=== PATIENT | female | born 1990 | race African-American/Black ===

== ENCOUNTER → 2018-01-20 20:09 | Observation (INO) ==
[2018-01-20 17:45] LABS: Basophils % 0.2 %; Eosinophils % 0.3 %; Hematocrit 37.6 % (35.3-44.9); Hemoglobin 12.7 g/dL (11.5-15.4); Immature Granulocytes % 0.4 % (0-4); Lymphocytes # 1.2 K/mcL (0.6-4.6); Lymphocytes % 10.7 %; Mean Corpuscular HGB Conc 33.8 g/dL (31.6-35.5); Mean Corpuscular Hemoglobin 30.1 pg (28.0-33.3); Mean Corpuscular Volume 89.1 fL (83.0-100.0); Mean Platelet Volume 10.5 fL (9.4-12.4); Monocytes # 0.7 K/mcL (0.0-1.3); Monocytes % 6.1 %; Neutrophils # 9.2 K/mcL (1.6-8.9); Platelet Count 254 K/mcL (140-400); Red Blood Count 4.22 M/mcL (3.82-4.97); Red Cell Distribution Width 13.2 % (11.5-14.5); Segmented Neutrophils % 82.3 %
[2018-01-20 17:48] LABS: Bilirubin,Urine Negative (Negative); Blood,Urine Negative (Negative); Clarity,Urine Cloudy (Clear); Color,Urine Yellow (Yellow); Glucose,Urine (UA) Normal (Normal); Ketones,Urine 80 mg/dL (Negative); Leukocyte Esterase,Urine Negative (Negative); Nitrite,Urine Negative (Negative); PH,Urine 6.5 pH Units (5.0-8.0); Protein,Urine 30 mg/dL (Neg-Trace); Specific Gravity,Urine 1.028 (1.010-1.025); Urobilinogen,Urine Normal (Normal)
[2018-01-20 17:49] LABS: Bacteria,Urine None Seen per hpf (None-Few); Hyaline Casts,Urine None Seen per lpf (None-Few); Squamous Epithelial Cell,Urine Many per lpf (None-Few)
[2018-01-20 18:18] LABS: Amphetamine Screen,Urine Negative ng/mL (Cutoff=1000); Barbiturate Screen,Urine Negative ng/mL (Cutoff=200); Benzodiazepines Screen,Urine Negative ng/mL (Cutoff=200); Cannabinoid Screen,Urine Negative ng/mL (Cutoff = 50); Cocaine Screen,Urine Negative ng/mL (Cutoff= 300); Opiate Screen,Urine Negative ng/mL (Cutoff=300); Phencyclidine Screen,Urine Negative ng/mL (Cutoff=25)
--- NOTE | 2018-01-20 19:24 | OB/GYN Progress Note ---
Date of Encounter: 01/20/18 Time of Encounter: 19:20 - Assessment and Plan (1) 25 weeks gestation of Current Visit: Yes Status: Acute Patient admitted for observation PIH labs pending (2) Nausea and vomiting during Current Visit: Yes Status: Acute electrolytes pending IV Zofran (3) GDM, class A1 Current Visit: Yes Status: Acute Patient reports last accucheck was 101 Subjective - Subjective Principal diagnosis: Nausea and vomiting Interval history: Patient is a 27 y/o @ 25 weeks gestation presents to labor and delivery with complaints of nausea and vomiting in . Patient also reports that her BP was elevated at home. Patient denies any headache, dizziness, blurred vision, contractions, LOF or VB. Patient reports +FM. is complicated by GDM that is diet controlled. Patient has history of PIH with previous . Antepartum ROS: movement normal, no loss of fluid, no vaginal bleeding, no contractions Objective - Vital Signs Vital Signs: Intake and Output 01/20/18 01/20/18 01/20/18 07:59 15:59 23:59 Other: Weight 95.4 kg Patient Weight 01/20/18 23:59 Weight 95.4 kg - Exam FHR: auscultation normal, category 1 FHR comments: 130 bpm moderate variability appropriate for gestational age. No contractions noted. Auscultation: bilateral: normal Abdomen: Present: normal appearance, soft, gravid Uterus: Present: normal - Labs Labs: Abnormal lab results WBC 11.2 K/mcL (4.3-11.1) H 01/20/18 17:23 Neutrophils # 9.2 K/mcL (1.6-8.9) H 01/20/18 17:23 Urine Clarity Cloudy (Clear) A 01/20/18 17:13 Ur Specific [place] 1.028 (1.010-1.025) H 01/20/18 17:13 Urine Protein 30 mg/dL (Neg-Trace) H 01/20/18 17:13 Urine Ketones 80 mg/dL (Negative) H 01/20/18 17:13 Urine Microscopic RBC 3-5 per hpf (0-3) H 01/20/18 17:13 Urine Microscopic WBC 5-15 per hpf (0-3) H 01/20/18 17:13 Ur Squamous Epith Cells Many per lpf (None-Few) H 01/20/18 17:13
--- NOTE | 2018-01-20 19:59 | Event Note ---
Date of Encounter: 01/20/18 Time of Encounter: 19:57 Patient asking to go home. Labs were delayed in Lab and hemolyzed patient does not want to have labs redrawn. BPs wnl. Patient reports she has had this nausea and vomiting her all along in this .
[~2018-01-20 20:09] MED LIST: Ondansetron 4 MG/2 ML VIAL IVP ONE
== END | disposition home or self-care (01) ==
LOC: 1NENULAB
PROVIDERS: ADMIT Advanced Practice Midwife; ATTEND Advanced Practice Midwife

== ENCOUNTER → 2018-04-14 00:40 | Observation (INO) ==
--- NOTE | 2018-04-13 17:10 | OB/GYN Progress Note ---
Date of Encounter: 04/13/18 Time of Encounter: 17:05 - Assessment and Plan (1) 37 weeks gestation of Current Visit: Yes Status: Acute Urine in office indicative of UTI Clinda IV CBC with Diff UDS LR fluids NST reactive Based upon CBC results, will keep for 24 hours of ABX or discharge home with oral ABX Plan of care per consult with Dr Triana (2) GDM (gestational diabetes mellitus) Current Visit: Yes Status: Acute Qualifiers: Gestational diabetes mellitus control: oral hypoglycemic-controlled Trimester: third trimester Qualified Code(s): O24.415 - Gestational diabetes mellitus in , controlled by oral hypoglycemic drugs (3) Urinary tract infection during in third trimester, antepartum Current Visit: Yes Status: Acute (4) NST (non-stress test) reactive Current Visit: Yes Status: Acute (5) Previous section complicating Current Visit: Yes Status: Acute Subjective - Subjective Principal diagnosis: Uterine contractions and abdominal pain Interval history: Ms Veloz is a at 37 weeks and 0 days that presents to triage from the office for suspected UTI and painful contractions. Her urinalysis from the office was indicative of UTI. She has had increased cramping and contractions since 32 weeks without cervical change, but states that they have increased today. She does have GDM and is currently on Metformin with good control. She has had a previous for failure to progress at 36 weeks secondary to SROM. She denies eating anything since this morning. Her ultrasound today states an SAMMY of 22 with an EFW of 7# 14 oz in the 93%. She denies headache, vision changes, epigastric pain, and leaking of fluid/vaginal bleeding. She states positive movement. Antepartum ROS: new complaints, movement normal, contractions, no loss of fluid, no vaginal bleeding Objective - Vital Signs Vital Signs: Intake and Output 04/13/18 04/13/18 04/13/18 07:59 15:59 23:59 Other: Weight 100.9 kg Patient Weight 04/13/18 23:59 Weight 100.9 kg - Exam FHR: auscultation normal, category 1 FHR comments: Baseline 140 category I tracing. Contractions every 2-5 minutes, palpate moderate Auscultation: bilateral: normal Abdomen: Present: normal appearance, soft, gravid, other (no CVA tenderness noted) Uterus: Present: normal. Absent: firm, tenderness Cervical dilation: FT Cervix effacement: Thick station: high Comments: Exam per Dr Sy in office.
[2018-04-13 17:13] LABS: Basophils % 0.2 %; Eosinophils % 0.2 %; Hematocrit 34.6 % (35.3-44.9); Hemoglobin 11.1 g/dL (11.5-15.4); Immature Granulocytes % 0.5 % (0-4); Lymphocytes % 15.4 %; Mean Corpuscular HGB Conc 32.1 g/dL (31.6-35.5); Mean Corpuscular Hemoglobin 27.2 pg (28.0-33.3); Mean Corpuscular Volume 84.8 fL (83.0-100.0); Mean Platelet Volume 11.3 fL (9.4-12.4); Monocytes # 1.2 K/mcL (0.0-1.3); Monocytes % 9.1 %; Neutrophils # 9.7 K/mcL (1.6-8.9); Nucleated Red Blood Cells 0.2 /100 WBC (0); Platelet Count 197 K/mcL (140-400); Red Blood Count 4.08 M/mcL (3.82-4.97); Red Cell Distribution Width 13.9 % (11.5-14.5); Segmented Neutrophils % 74.6 %
[2018-04-13 17:25] LABS: Amphetamine Screen,Urine Negative ng/mL (Cutoff=1000); Barbiturate Screen,Urine Negative ng/mL (Cutoff=200); Benzodiazepines Screen,Urine Negative ng/mL (Cutoff=200); Cannabinoid Screen,Urine Negative ng/mL (Cutoff = 50); Cocaine Screen,Urine Negative ng/mL (Cutoff= 300); Opiate Screen,Urine Negative ng/mL (Cutoff=300); Phencyclidine Screen,Urine Negative ng/mL (Cutoff=25)
--- NOTE | 2018-04-13 17:48 | OB Labor Progress Note ---
Date of Encounter: 04/13/18 Time of Encounter: 17:45 Labor Progress Note - Subjective Subjective: Patient breathing through contractions. Is requesting pain medication. - Vital Signs Vital Signs: VSS - Cervix Cervix: 4/80/-2 - Heart Tones Heart Tones: 130 baseline category I - [place]: Contractions every 2-2.5 minutes - Plan Plan: Continue routine labor management GBS negative Continue Pitocin Patient may have nubain/epidural upon request Anticipate vaginal delivery POC per consult with Dr Triana.
[~2018-04-14 00:40] MED LIST changes: +*HR* Promethazine 25 MG/ML VIAL IVP PRN; +Acetaminophen 325 MG TABLET PO PRN; +Clindamycin 600 MG/50 ML 600 MG/50 ML IV.SOLN IVPB SCH; +Famotidine 20 MG/2 ML VIAL IVP ONE; -Ondansetron 4 MG/2 ML VIAL IVP ONE; +Ondansetron 4 MG/2 ML VIAL IVP PRN; +Ringers Solution, Lactated 1,000 ML IVC SCH
== END | disposition home or self-care (01) ==
LOC: 1NENULAB
PROVIDERS: ADMIT Obstetrics & Gynecology; ATTEND Obstetrics & Gynecology

== ENCOUNTER 2018-04-26 06:49 | Inpatient (IN) ==
[~2018-04-26 06:49] MED LIST changes: +*HR* Nalbuphine 10 MG/ML AMPUL IVP PRN; -*HR* Promethazine 25 MG/ML VIAL IVP PRN; -Acetaminophen 325 MG TABLET PO PRN; -Clindamycin 600 MG/50 ML 600 MG/50 ML IV.SOLN IVPB SCH; +Famotidine 20 MG/2 ML VIAL IVP PRN; +Gentamicin 350 MG in 0.9 % Sodium Chloride 100 ML IVPB ONE; +Naloxone 0.4 MG/ML INJ IVP PRN; +Oxytocin 20 units/ LR 1000 mL 20 UNIT/1,000 ML BAG IVC ONE; +Ringers Solution, Lactated 1,000 ML IVC ONE; -Ringers Solution, Lactated 1,000 ML IVC SCH
[2018-04-26] MEDS ORDERED: Ringers Solution, Lactated 1,000 ML IVC SCH (07:00)
[2018-04-26] MEDS ORDERED: Oxytocin 20 units/ LR 1000 mL 20 UNIT/1,000 ML BAG IVC SCH (07:00)
[2018-04-26] MEDS ORDERED: Clindamycin 900 MG/50 ML 900 MG/50 ML IV.SOLN IVPB ONE (07:12)
[2018-04-26] MEDS ORDERED: Metoclopramide 10 MG/2 ML VIAL IVP ONE (07:38)
[2018-04-26] MEDS: Metoclopramide 10 MG/2 ML VIAL IVP ONE ×2 (07:40→07:49)
--- NOTE | 2018-04-26 07:59 | Anesthesia Evaluation PreOp ---
Date of Encounter: 04/26/18 Time of Encounter: 07:40 - Past History Planned Operation: repeat csection Cardiac History: HTN Pulmonary History: Denies Any Significant HX, Former smoker (smoked many years ago, no lung problems.) CYLINDER TESTER History: Denies Any Significant HX Other Medical History: Other (gestational diabetes. Morbid Obesity.) Anesthesia History: No Prior Anesthetic Complications, Past Anesthesia ( Emergency c section with GA, Bilateral ear tubes, T&A. No problems with GA. No FHAP.) : Yes Alcohol Use: none Drug use: none Medications and Allergies Aspirin 81 mg PO DAILY 01/20/18 [History] Vitamins 1 tab PO DAILY 01/20/18 [History] Zantac 150 mg PO BID 01/20/18 [History] Clindamycin HCl [Cleocin HCl] 300 mg PO TID 10 Days #30 cap 04/13/18 [Rx] Glyburide/Metformin HCl [Glyburide-Metformin 5-500 mg] 500 mg PO BID 04/13/18 [ History] Ondansetron ODT [Zofran ODT] 4 mg SL Q6HR PRN #30 tab.rapdis 04/13/18 [Rx] 3 Allergy/AdvReac Type Severity Reaction Status Date / Time ibuprofen Allergy "I do not Verified 10/06/17 10:07 know, diagnosed as a baby" per pt statement Penicillins Allergy "I do not Verified 10/06/17 10:07 know, diagnosed as a baby" per pt statement - Meds/Allergy Pre-op Review Medications Reviewed: Yes Allergies Reviewed: Yes Beta Blockers on Current Med List: No Anesthesia Exam 142/8, 101, 18. Height: 1.55m Weight: 102 kg NPO (# of Hours): 8 Pain Scale: 0 Pain Scale Used: Numeric (1 - 10) - HEENT Pupil (Motor): Pupils equal, EOMI Mallampati: II Teeth: Normal Oral Opening: Greater than 3 - CYLINDER TESTER LOC: Oriented CYLINDER TESTER Motor: Normal RUE, Normal LUE, Normal RLE, Normal LLE, Normal Face CYLINDER TESTER Sensory: Normal: RUE, LUE, RLE, LLE, Face - Cardiac Rhythm: Regular - Pulmonary Breath Sounds: bilateral Clear Respiratory Effort: Symmetrical Anesthesia Assess/Plan ASA Score: 3 Modified Winn Scale for Level of Consciousness: Cooperative, oriented, and tranquil Anesthetic Plan: Regional Monitoring Plan: Standard Monitors Recovery Plan: PACU
[2018-04-26 08:17] LABS: Basophils % 0.3 %; Eosinophils # 0.1 K/mcL (0.0-0.6); Eosinophils % 0.7 %; Hematocrit 33.3 % (35.3-44.9); Hemoglobin 10.6 g/dL (11.5-15.4); Immature Granulocytes % 1.3 % (0-4); Lymphocytes # 2.7 K/mcL (0.6-4.6); Lymphocytes % 22.6 %; Mean Corpuscular HGB Conc 31.8 g/dL (31.6-35.5); Mean Corpuscular Hemoglobin 27.5 pg (28.0-33.3); Mean Corpuscular Volume 86.5 fL (83.0-100.0); Mean Platelet Volume 11.7 fL (9.4-12.4); Monocytes # 1.1 K/mcL (0.0-1.3); Monocytes % 9.2 %; Neutrophils # 7.8 K/mcL (1.6-8.9); Nucleated Red Blood Cells 0.3 /100 WBC (0); Platelet Count 207 K/mcL (140-400); Red Blood Count 3.85 M/mcL (3.82-4.97); Segmented Neutrophils % 65.9 %
[2018-04-26] MEDS ORDERED: *HR* FentaNYL (PF) 100 MCG/2 ML VIAL ONE (08:19)
[2018-04-26] MEDS ORDERED: EPHEDrine 50 MG/ML VIAL ONE (08:19)
[2018-04-26] MEDS ORDERED: *HR* Morphine Sulfate/PF 10 MG/10 ML AMPUL ONE (08:19)
[2018-04-26] MEDS ORDERED: *HR* Phenylephrine 10 MG/ML VIAL ONE (08:20)
[2018-04-26] MEDS ORDERED: Water for inj. (sterile) 10 ML IV ONE (08:20)
[2018-04-26] MEDS ORDERED: Bupivacaine/PF 0.75% in Dex 2 ML AMPUL INFILT ONE (08:26)
--- NOTE | 2018-04-26 08:54 | History & Physical Report ---
Date of Encounter: 04/26/18 Time of Encounter: 08:52 24 Hour HP Update - Instructions Instructions: If the History and Physical is less than 30 days old and was completed prior to A.M. admission and or procedure and has NOT been updated on calendar day of procedure please complete this update prior to performing procedure. - Update Patient reports changes in Medical Condition: Yes Changes in examination, assessment, or condition: Yes Changes in Medication: No Preop tests/diagnostics Reviewed: Yes Surgery Remains Indicated: Yes Consent for Planned Operative Procedure(s) Verified: Yes Review of Patient reveals the following changes:: Onset of contractions early this morning, concern for ruptured membranes which was ruled out. Patient has made cervical change from 2 cm to 4 cm and is uncomfortable with contractions now. - Pre-Operative Checklist Preoperative Checklist Indicated: Yes Prophylactic Antibiotic Ordered: Yes Home Medications Include Beta Armida: No Beta Armida Taken Today (Day of Surgery): No Beta Armida Taken Yesterday (Day Prior to Surgery): No Is VTE Prophylaxis Indicated?: Yes
[2018-04-26 09:02] LABS: Amphetamine Screen,Urine Negative ng/mL (Cutoff=1000); Barbiturate Screen,Urine Negative ng/mL (Cutoff=200); Benzodiazepines Screen,Urine Negative ng/mL (Cutoff=200); Cannabinoid Screen,Urine Positive ng/mL (Cutoff = 50); Cocaine Screen,Urine Negative ng/mL (Cutoff= 300); Opiate Screen,Urine Negative ng/mL (Cutoff=300); Phencyclidine Screen,Urine Negative ng/mL (Cutoff=25)
[2018-04-26] MEDS ORDERED: *HR* Oxytocin 10 UNIT/ML VIAL IM ONE ×2 (09:23→09:57)
[2018-04-26] MEDS ORDERED: Ringers Solution, Lactated 1,000 ML ONE (09:57)
[2018-04-26] MEDS ORDERED: *HR* Promethazine 25 MG/ML VIAL IVP PRN ×2 (10:02→14:56)
[2018-04-26] MEDS ORDERED: Acetaminophen IV 1,000 MG/100 ML INFUS..BTL IVPB ONE (10:02)
[2018-04-26] MEDS ORDERED: *HR* HYDROmorphone (PF) 1 MG/ML SYRINGE IVP PRN (10:02)
[2018-04-26] MEDS ORDERED: *HR* Morphine 2 MG/ML SYRINGE IVP PRN (10:02)
[2018-04-26] MEDS ORDERED: Ondansetron 4 MG/2 ML VIAL IVP ONE (10:02)
--- NOTE | 2018-04-26 10:51 | OB/GYN Procedure Note ---
Section - Date of procedure: 04/26/18 Preop diagnosis: desires repeat , desires sterilization Post-op diagnosis: same Procedure: section, repeat low transverse, bilateral tubal ligation Surgeon: Sudha Salazar Blood Loss: 500 Was there an assistant professor of biology present: No Anesthesiologist: Darryn Wong Peach Grower: Safia Mohan Anesthesia Type: Spinal section complications: none Disposition: L&D Recovery Room Specimens: Placenta, Cord segment, Cord blood, Right tube segment, Left tube segment (Distal 3/4 of the left fallopian tube including fimbria) - (s) A Delivery Date: 04/26/18 Delivery Time: 09:37 Presentation: vertex Position: DARCY Route of delivery: other () Gender: Male Viability: Viable Pounds: 8 Ounces: 15 Gram Weight: 4.045 kg at 1 minute: 9 at 5 minutes: 9 Shoulder Dystocia: not encountered Specimens collected: cord blood Placenta: spontaneous, uterine exploration Cord: nuchal cord (x2), true knot, 3 umbilical vessels, nuchal reduced - Narrative Narrative: The patient was taken to the operating room and given spinal anesthesia adequate for abdominal and pelvic surgery. She was prepped and draped in the usual sterile fashion. Timeout was completed. A Pfannenstiel skin incision was made through the previous scar. The subcutaneous tissue was then sharply dissected down to the fascia. The fascia was incised in the midline and extended bilaterally. 2 straight Deshler clamps were placed on the inferior fascial edge and the fascia was bluntly and sharply dissected away from the rectus muscles. This was repeated superiorly. The rectus muscles were bluntly bissected. Peritoneum was bluntly entered. The peritoneum was then extended superiorly and inferiorly confirming there were no anterior adhesions to this area. Bladder blade was placed to protect the bladder. The left fallopian tube including the fimbria was adherent to the uterus down to the incision line at the bladder on the left. Vesicouterine peritoneum was incised and reflected inferiorly and the bladder blade was replaced to protect the bladder. A low transverse incision was then made through the lower uterine segment down to the amnion. This is bluntly extended bilaterally. The amnion was bluntly entered and clear fluid noted. This was followed by the vertex delivery of a vigorous male . There was a nuchal x2 that was reduced. A true knot was also identified in the umbilical cord. The infant was placed on the maternal abdomen and bulb suctioned. The cord was clamped and cut after a delay. was handed to the nursery care team. Cord blood was obtained. The placenta was delivered spontaneous and intact. The uterine cavity was digitally palpated and wiped clean with a moist lap sponge. There were no placental remnants identified. Clamps were placed on the uterine angles and the uterine incision was closed using 0 Vicryl suture in a running, locking fashion. Gloves were changed. A second imbricating layer completed the uterine closure with 0 Vicryl suture. A single 0 Vicryl suture is used in the [id number] fashion along the incision for hemostasis. Good hemostasis was achieved. Attention was then placed on the fallopian tubes. The tubes and ovaries appeared grossly normal bilaterally with tubo-ovarian adhesions noted on the left as described above. The fimbria was oozing. [place] clamps were used to ligate the distal portion of the left fallopian tube that was adherent to the uterus. Ligation was done with the Bovie and Metzenbaum scissors. The distal portion was then closed using 3-0 Vicryl in a Raciel fashion. Good hemostasis was confirmed. The remaining portion of the tube was then ligated at the proximal one quarter erasmo. This portion was then doubly ligated with oh plain suture. Hemostasis of the tubal lumens was observed along with the suture margin. The specimen was handed off to be sent to pathology. The right fallopian tube was grasped with a [place] clamp and O-plain suture was used to doubly ligate a proximal loop of tube. The loop of tube was then excised and sent to pathology. Good hemostasis was noted in the tubal lumens. Again good hemostasis noted in the tubal lumens. The uterus was then examined and noted to be hemostatic. The pelvis was then irrigated with a copious amount of sterile water. Again good hemostasis was identified. The peritoneal edges and rectus muscles were then examined and hemostasis achieved. The fascia was then closed using an 0 PDS loop in a running nonlocking fashion. Subcutaneous tissue was irrigated with sterile water, good hemostasis was achieved. The subcuticular layer was closed with O-stratafix. The skin was then closed using and 4-0 vicryl in a running subcuticular fashion. Incision was then dressed with Perineo dressing. Good hemostasis was noted. The Joel was noted to be draining clear yellow urine at the end of the procedure. All sponge and instrument counts were correct at the end of the procedure. The patient was taken to the recovery room in stable condition.
--- NOTE | 2018-04-26 12:25 | Anesthesia Evaluation Post Op ---
Date of Encounter: 04/26/18 Time of Encounter: 11:30 - Vital Signs Vital Signs: VSS, accucheck 101. - Lungs Lungs: Clear Ascult./Percussion - Airway Airway: Non-obstructed - Cardiovascular Regular Rate - Mental Status Mental Status: Alert & Oriented, Answers Appropriately - Pain Pain Scale: 0 Pain Scale used: Numeric (1 - 10) - Nausea Vomiting Nausea Vomiting: Present (received a dose of zofran just prior to this evaluation.) - Hydration Hydration: NPO, Joel catheter - Discharge PostOp Status: Transfer Patient to floor
[2018-04-26] MEDS ORDERED: Rho Immune Globulin 1,500 UNIT SYRINGE IM ONE (13:29)
[2018-04-26] MEDS ORDERED: Sennosides 8.6 MG TABLET PO PRN (13:29)
[2018-04-26] MEDS ORDERED: Metoclopramide 10 MG/2 ML VIAL IVP PRN (13:29)
[2018-04-26] MEDS ORDERED: Ondansetron 4 MG/2 ML VIAL IVP PRN (13:29)
[2018-04-26] MEDS ORDERED: miSOPROStol 100 MCG TABLET PO ONE (13:59)
[2018-04-26] MEDS: Oxytocin 20 units/ LR 1000 mL 20 UNIT/1,000 ML BAG IVC SCH ×2 (14:03→22:24)
[2018-04-26] MEDS: Silver Sulfadiazine 50 GM TUBE TP SCH ×2 (15:06→18:11)
[2018-04-26] MEDS: *HR* OxyCODONE/APAP 5/325 TABLET PO PRN (21:12)
[2018-04-27 06:40] LABS: Basophils % 0.2 %; Eosinophils % 0.1 %; Hematocrit 32.9 % (35.3-44.9); Hemoglobin 10.1 g/dL (11.5-15.4); Immature Granulocytes % 0.8 % (0-4); Lymphocytes # 1.8 K/mcL (0.6-4.6); Lymphocytes % 11.2 %; Mean Corpuscular HGB Conc 30.7 g/dL (31.6-35.5); Mean Corpuscular Hemoglobin 26.6 pg (28.0-33.3); Mean Corpuscular Volume 86.8 fL (83.0-100.0); Mean Platelet Volume 11.1 fL (9.4-12.4); Monocytes # 1.4 K/mcL (0.0-1.3); Monocytes % 8.6 %; Platelet Count 210 K/mcL (140-400); Red Blood Count 3.79 M/mcL (3.82-4.97); Red Cell Distribution Width 14.5 % (11.5-14.5); Segmented Neutrophils % 79.1 %
[2018-04-27] MEDS ORDERED: Aspirin 81 MG TAB.CHEW PO SCH (09:00)
--- NOTE | 2018-04-27 09:26 | OB/GYN Progress Note ---
Date of Encounter: 04/27/18 Time of Encounter: 09:26 - Assessment and Plan (1) Status post delivery Current Visit: Yes Status: Acute POD #1 Continue with pain control as needed Plan for discharge home tomorrow (2) S/P tubal ligation Current Visit: Yes Status: Acute (3) Breast feeding status of mother Current Visit: Yes Status: Acute with mild difficulty with latch Subjective - Subjective Principal diagnosis: S/P Section and Tubal Ligation Interval history: Pt seen and examined at bedside Mother and baby resting comfortably Pain well controlled with Percocet/ Tylenol Voiding appropriately Ambulating without difficulty Normal appetite Yet to have bowel movement or pass flatus; evidence of bowel sounds Mild tenderness at incision site Notes she has been , with mild difficulty; Concern that infant may need supplementation with formula Patient reports: appetite normal, voiding normally, pain well controlled, ambulating normally [place]: doing well, nursing well Objective - Vital Signs Latest vital signs: Vital Signs Temp Pulse Resp BP Pulse Ox 04/27/18 08:03 98.3 F 109 14 116/75 98 04/27/18 03:30 98.7 F 100 16 104/63 98 04/27/18 00:45 98.4 F 112 14 102/56 96 04/26/18 20:31 98.1 F 108 14 107/59 96 04/26/18 16:50 98.6 F 97 16 132/85 98 04/26/18 15:32 98.1 F 97 16 124/81 95 04/26/18 14:30 97.8 F 93 16 142/87 96 04/26/18 14:00 97.6 F 94 16 132/86 96 04/26/18 13:30 97.7 F 96 16 106/67 97 Intake and Output 04/26/18 04/27/18 04/27/18 23:59 07:59 15:59 Intake Total 1000 / 1000 150 / 150 120 / 120 Output Total 400 / 400 950 / 950 500 / 500 Balance 600 / 600 -800 / -800 -380 / -380 Intake: IV Fluids 1000 / 1000 Pitocin 20 unit In 1,000 ml @ 1000 / 1000 125 mls/hr IVC .Q8H SADI Rx#: [id number] Oral 150 / 150 120 / 120 Output: Urine 300 / 300 500 / 500 Catheter 400 / 400 650 / 650 Other: Meal Breakfast Percent of Meal Consumed 90% Weight 98.883 kg Patient Weight 04/27/18 23:59 Weight 98.883 kg - Exam Lungs: bilateral: normal Chest: Normal S1, Normal S2 Extremities: Present: normal Abdomen: Present: normal appearance, soft Incision: Present: normal, dry, intact Uterus: Present: normal, firm Comments: I examined this patient and my medical decision-making was reviewed with the Resident Physician. I agree with the documented findings, disposition and treatment plan as described except to the extent set forth below. MYNOR Blood - Labs Labs: Laboratory Results - last 24 hr 04/26/18 04/27/18 11:30 06:15 WBC 16.4 H RBC 3.79 L Hgb 10.1 L Hct 32.9 L MCV 86.8 MCH 26.6 L MCHC 30.7 L RDW 14.5 Plt Count 210 MPV 11.1 Immature Gran % 0.8 Seg Neutrophils % 79.1 Lymphocytes % 11.2 Monocytes % 8.6 Eosinophils % 0.1 Basophils % 0.2 Neutrophils # 13.0 H Lymphocytes # 1.8 Monocytes # 1.4 H Eosinophils # 0.0 Basophils # 0.0 POC Glucose 101 H
[2018-04-27] MEDS: Prenatal Vit/FA 1 EACH TABLET PO SCH (09:41)
[2018-04-27] MEDS: Acetaminophen 325 MG TABLET PO PRN (09:47)
[2018-04-27] MEDS: *HR* OxyCODONE/APAP 5/325 TABLET PO PRN (20:14)
[2018-04-27] MEDS: Simethicone 80 MG TAB.CHEW PO PRN (20:14)
[2018-04-28] MEDS: Simethicone 80 MG TAB.CHEW PO PRN (04:32)
[2018-04-28] MEDS: Acetaminophen 325 MG TABLET PO PRN ×2 (04:32→08:41)
[2018-04-28 08:03] VITALS: BP 126/87
[2018-04-28] MEDS: Prenatal Vit/FA 1 EACH TABLET PO SCH (08:41)
[2018-04-28] MEDS: Silver Sulfadiazine 50 GM TUBE TP SCH (08:45)
--- NOTE | 2018-04-28 10:40 | Discharge Summary ---
Date of Encounter: 04/28/18 Time of Encounter: 10:39 - Discharge Diagnosis (1) Status post delivery Priority: Primary Status: Acute Comments: Stable PPD #2, tolerates regular diet, +flatus, pain well managed on po pain medication, , desires discharge, (2) S/P tubal ligation Priority: Secondary Status: Acute (3) Breast feeding status of mother Priority: Secondary Status: Acute - Discharge Medications Prescriptions: OxyCODONE/APAP 5/325 [Percocet 5/325 MG] 1 each PO Q4HR PRN 5 Days #20 tablet PRN Reason: Moderate pain 4-6 Docusate [Colace] 100 mg PO BID #30 capsule Home Medications: Vitamins 1 tab PO DAILY 01/20/18 [History] Zantac 150 mg PO BID 01/20/18 [History] Glyburide/Metformin HCl [Glyburide-Metformin 5-500 mg] 500 mg PO BID 04/13/18 [ History] Acetaminophen [Tylenol] 650 mg PO Q6HR PRN tablet 04/28/18 [Rx] Docusate [Colace] 100 mg PO BID #30 capsule 04/28/18 [Rx] Ferrous Sulfate 325 mg PO DAILY tablet 04/28/18 [Rx] OxyCODONE/APAP 5/325 [Percocet 5/325 MG] 1 each PO Q4HR PRN 5 Days #20 tablet [Rx] Vit/FA 1 each PO DAILY tablet 04/28/18 [Rx] Silver Sulfadiazine [Silvadene] 1 appl TP DAILY tube 04/28/18 [Rx] Allergies/Adverse Reactions: 3 Allergy/AdvReac Type Severity Reaction Status Date / Time ibuprofen Allergy "I do not Verified 10/06/17 10:07 know, diagnosed as a baby" per pt statement Penicillins Allergy "I do not Verified 10/06/17 10:07 know, diagnosed as a baby" per pt statement Data Procedures and tests throughout hospitalization: Laboratory Tests 04/26/18 04/26/18 04/26/18 07:41 08:12 08:46 WBC 11.8 H RBC 3.85 Hgb 10.6 L Hct 33.3 L MCV 86.5 MCH 27.5 L MCHC 31.8 RDW 14.0 Plt Count 207 MPV 11.7 Immature Gran % 1.3 Seg Neutrophils % 65.9 Lymphocytes % 22.6 Monocytes % 9.2 Eosinophils % 0.7 Basophils % 0.3 Neutrophils # 7.8 Lymphocytes # 2.7 Monocytes # 1.1 Eosinophils # 0.1 Basophils # 0.0 Nucleated RBCs/100 WBC 0.3 H POC Glucose 92 Urine Opiates Screen Negative Ur Barbiturates Screen Negative Ur Phencyclidine Scrn Negative Ur Amphetamines Screen Negative U Benzodiazepines Scrn Negative Urine Cocaine Screen Negative U Marijuana (THC) Screen Positive H Ur Drug Screen Interp See Below 04/26/18 04/27/18 11:30 06:15 WBC 16.4 H RBC 3.79 L Hgb 10.1 L Hct 32.9 L MCV 86.8 MCH 26.6 L MCHC 30.7 L RDW 14.5 Plt Count 210 MPV 11.1 Immature Gran % 0.8 Seg Neutrophils % 79.1 Lymphocytes % 11.2 Monocytes % 8.6 Eosinophils % 0.1 Basophils % 0.2 Neutrophils # 13.0 H Lymphocytes # 1.8 Monocytes # 1.4 H Eosinophils # 0.0 Basophils # 0.0 Nucleated RBCs/100 WBC POC Glucose 101 H Urine Opiates Screen Ur Barbiturates Screen Ur Phencyclidine Scrn Ur Amphetamines Screen U Benzodiazepines Scrn Urine Cocaine Screen U Marijuana (THC) Screen Ur Drug Screen Interp Date of admission: 04/26/18 06:49 Primary care physician: PCP RAQUEL Discharging clinician: Carina Duggan Anticipated date of discharge: 04/28/18 - Patient Status Disposition: Home, Self-Care Condition: Good Functional capacity at discharge: independent ambulation Overall status at discharge: patient is progressing back to baseline - Discharge Instructions Follow Up With: NONE,PCP [Primary Care Provider] - Sudha Sy MD [Partnered Physician] - - Diet and Activity Activity: resume usual activities as tolerated Diet: regular diet Hospital Course Reason for admission: section, IUP at term Delivery: section Other procedures: tubal ligation complications: none Discharge diagnosis: IUP at term delivered [place] baby: male Hospital course: Section - Date of procedure: 04/26/18 Preop diagnosis: desires repeat , desires sterilization Post-op diagnosis: same Procedure: section, repeat low transverse, bilateral tubal ligation Surgeon: Sudha Sy Quantitated Blood Loss: 500 Was there an hotel assistant general manager present: No Anesthesiologist: Darryn Wnog Senior Electronics Design Engineer: Safia Mohan Anesthesia Type: Spinal section complications: none Disposition: L&D Recovery Room Specimens: Placenta, Cord segment, Cord blood, Right tube segment, Left tube segment (Distal 3/4 of the left fallopian tube including fimbria) - (s) Infant A Delivery Date: 04/26/18 Infant Delivery Time: 09:37 Presentation: vertex Position: DARCY Route of delivery: other () Gender: Male Viability: Viable Pounds: 8 Ounces: 15 Gram Weight: 4.045 kg at 1 minute: 9 at 5 minutes: 9 Shoulder Dystocia: not encountered Specimens collected: cord blood Placenta: spontaneous, uterine exploration Cord: nuchal cord (x2), true knot, 3 umbilical vessels, nuchal reduced Stable in PP and appropriate for discharge. OAARS reviewed. Time Attestation: Total time spent providing and/or coordinating discharge services: Time Spent: Less than 30 minutes - VTE Reasons for not Prescribing Prophylaxis: Treatment not Indicated - Low risk for VTE Documentation of Mechanical Device: Intermittent pneumatic compression device Exam - Constitutional Vitals: Temp Pulse Resp BP Pulse Ox 98.3 F 90 12 126/87 99 04/28/18 08:02 04/28/18 08:02 04/28/18 08:02 04/28/18 08:02 04/28/18 08:02 General appearance IM: A&O X 3 - Respiratory Respiratory exam: Present: CTAB - Cardiovascular Cardiovascular exam IM: Present: RRR - GI/Abdominal GI/Abdominal exam IM: soft Incision: normal, intact - Uterine Tone: Firm Uterus Position: At Umbilicus - Extremities Exam Extremities exam IM: Present: normal capillary refill, normal inspection - Neurological Exam Neurological exam: normal gait, oriented X3 - Psychiatric Additional comments: Reports good mood
[2018-04-28] MEDS: *HR* OxyCODONE/APAP 5/325 TABLET PO PRN (13:17)
== END 2018-04-28 14:00 | disposition home or self-care (01) | DRG 765 ==
LOC: 1NENULAB → 1NENUOBS 13:13
PROVIDERS: ADMIT Obstetrics & Gynecology; ATTEND Obstetrics & Gynecology